=== PATIENT | female | born 1985 ===

== ENCOUNTER 2024-07-06 21:55 | Emergency (ER) | payer OTHER ==
[~2024-07-06] VITALS: Ht 154.9 cm; Wt 79.5 kg
[2024-07-06 21:59] VITALS: BP 157/79; PULSE 117; RESP 18; TEMP 97.9; O2SAT 100
[2024-07-06] MEDS: KETOROLAC TROMETHAMINE 30 MG/ML VIAL IM ONE (22:51)
[2024-07-06] MEDS: ACETAMINOPHEN 500 MG TABLET PO ONE (22:51)
== END 2024-07-07 | disposition home or self-care (01) ==
LOC: EMS 21:55
DX: S00.83XA Contusion of other part of head, initial encounter (principal); G44.309 Post-traumatic headache, unspecified, not intractable; W22.01XA Walked into wall, initial encounter; Y93.89 Activity, other specified; Y92.89 Other specified places as the place of occurrence of the external cause; Y99.8 Other external cause status
CPT/HCPCS: 99282; J1885